=== PATIENT | male | born 1945 | race Caucasian/White ===

== ENCOUNTER 2016-06-29 14:34 | Inpatient (IN) ==
[2016-06-29] MEDS ORDERED: Aspirin 81 MG TAB.CHEW PO ONE (15:11)
[2016-06-29 15:39] LABS: Basophils % 0.3 %; Eosinophils % 1.3 %; Hematocrit 26.5 % (37.5-50.1); Hemoglobin 8.5 g/dL (12.9-16.9); Immature Granulocytes % 0.3 % (0-4); Lymphocytes # 0.7 K/mcL (0.6-4.6); Lymphocytes % 20.4 %; Mean Corpuscular HGB Conc 32.1 g/dL (31.6-35.5); Mean Corpuscular Hemoglobin 31.1 pg (28.0-33.3); Mean Corpuscular Volume 97.1 fL (83.0-100.0); Mean Platelet Volume 9.2 fL (9.4-12.4); Monocytes # 0.3 K/mcL (0.0-1.3); Monocytes % 9.7 %; Neutrophils # 2.2 K/mcL (1.6-8.9); Platelet Count 116 K/mcL (140-400); Red Blood Count 2.73 M/mcL (4.19-5.50); Red Cell Distribution Width 14.7 % (11.5-14.5)
[2016-06-29 15:45] LABS: INR 1.1; Prothrombin Time 11.9 Seconds (9.4-12.1)
[2016-06-29 15:48] LABS: Activated Partial Thrombo Time 29.2 Seconds (26.0-36.0)
[2016-06-29 15:51] LABS: Calcium 8.6 mg/dL (8.6-10.8); Potassium 4.5 mEq/L (3.5-4.5)
--- NOTE | 2016-06-29 16:57 | Emergency Department Note ---
Disposition Clinical Impression: NSTEMI (non-ST elevated myocardial infarction) Chest pain Qualifiers: Chest pain type: chest pain due to myocardial ischemia Ischemic chest pain type : unstable angina pectoris Qualified Code(s): I20.0 - Unstable angina Disposition: Admitted As Inpatient Condition: Fair Time of Disposition: 17:07 Chest Pain HPI - General Chief Complaint: ED Chest Pain Stated Complaint: chest pain Time Seen by Provider: 06/29/16 14:49 Source: EMS Limitations: no limitations Vital Signs Reviewed: Yes Nursing Notes Reviewed: Yes - History of Present Illness HPI Narrative: Patient is a 70-year-old male who expressed chest pain this morning approximately 0600 hrs. patient states the pain lasted 30 minutes but when asked to describe where the pain was and character patient was unable to give a good description. Patient does have a history of poor recollection and confusion per family they state patient today is that his baseline. Patient points to mid abdomen when asked about his chest pain. Patient is seen at the [facility]. Patient's initial troponin was negative per their records at 0.04 , patient's repeat troponin 4 hours later was 0.069, patient had EKG changes and was transferred to the ED. Patient arrived asymptomatic and not having any chest pain. Patient was administered aspirin on arrival. Patient is alert and oriented 3 and in no acute distress Severity scale (1-10): 0 - Related Data Home Medications Medication Instructions Recorded Confirmed Aspirin [Lo-Dose Aspirin EC] 81 mg PO DAILY 06/29/16 06/29/16 Chlorhexidine Gluconate [Periogard] 15 ml MM BID 06/29/16 06/29/16 Cholecalciferol (D-3) [Vitamin D] 4,000 unit PO DAILY 06/29/16 06/29/16 Clopidogrel [Plavix] 75 mg PO DAILY 06/29/16 06/29/16 CycloSPORINE (SandIMMUNE) 50 mg PO BID 06/29/16 06/29/16 [SandIMMUNE] Docusate [Colace] 100 mg PO BID 06/29/16 06/29/16 HYDROcodone/Acet 5/325 mg 5 - 325 mg PO DAILY PRN MDD 1 06/29/16 06/29/16 HydrALAZINE 37.5 mg PO Q8HR 06/29/16 06/29/16 Metoprolol [Lopressor] 25 mg PO BID 06/29/16 06/29/16 Mycophenolate Mofetil [Cellcept] 500 mg PO BID 06/29/16 06/29/16 [place]-3/Dha/Epa/Fish Oil [Fish Oil 2,000 mg PO BID 06/29/16 06/29/16 1,000 mg Softgel] Omeprazole [PriLOSEC] 20 mg PO DAILY 06/29/16 06/29/16 PredniSONE [Zhane] 5 mg PO DAILY 06/29/16 06/29/16 Quetiapine Fumarate [Seroquel] 200 mg PO HS 06/29/16 06/29/16 Sennosides [Senna] 8.6 mg PO BID PRN 06/29/16 06/29/16 Sertraline [Zoloft] 100 mg PO DAILY 06/29/16 06/29/16 Terazosin [Hytrin] 1 mg PO HS 06/29/16 06/29/16 Trazodone HCl 200 mg PO HS 06/29/16 06/29/16 Allergies Allergy/AdvReac Type Severity Reaction Status Date / Time gabapentin Allergy Swelling Verified 06/29/16 17:21 of Lip/Tongue/Throat pregabalin [From Lyrica] Allergy Swelling Verified 07/07/15 18:02 of Lip/Tongue/Throat Review of Systems: Patient denies chest pain, fever, chills, cough, dizziness, lightheadedness, shortness of breath, abdominal pain, incontinence, radiation of pain symptoms. All systems ED: reviewed and negative except as stated. Constitutional: Denies: fever, chills Eyes: Denies: vision change ENT ED: Denies: congestion Cardiovascular: Reports: chest pain. Denies: palpitations Respiratory: Denies: cough, dyspnea, wheezes Gastrointestinal: Denies: abdominal pain, nausea, vomiting, diarrhea, hematemesis, melena, hematochezia Genitourinary: Denies: urgency, dysuria Musculoskeletal: Denies: back pain, neck pain Integumentary: Denies: rash Neurological: Denies: headache Psychiatric: Denies: anxiety Endocrine: Denies: fatigue Chest Pain PMH - Past Medical History Medical history: Reports: CHF, COPD, diabetes, dialysis, myocardial infarction Psychiatric history: Reports: anxiety, depression - Social History Smoking Status: Never smoker Alcohol use: Reports: none Drug use: Reports: none Physical Exam - General Limitations: no limitations General appearance: alert - Head Head exam: atraumatic, normocephalic, normal inspection - Eye Eye exam: Present: normal appearance, PERRL, EOMI. Absent: scleral icterus, conjunctival injection - ENT ENT exam: normal exam, normal oropharynx, mucous membranes moist - Neck Neck exam: Present: normal inspection, full ROM, trachea midline. Absent: tenderness, meningismus, lymphadenopathy - Chest Chest inspection: Present: normal inspection, symmetric chest wall rise. Absent : tenderness, rash - Respiratory Respiratory exam: Present: normal lung sounds bilaterally. Absent: respiratory distress, wheezes - Cardiovascular Cardiovascular exam: Present: regular rate, normal rhythm - Abdominal Exam Abdominal exam: Present: soft, Non-Tender, normal bowel sounds. Absent: tenderness, distention, guarding, rebound, rigidity - Extremities Exam Extremities exam: Present: normal inspection, full ROM, normal capillary refill. Absent: tenderness, pedal edema - Back Exam Back exam: Present: normal inspection, full ROM. Absent: tenderness, CVA tenderness (R), CVA tenderness (L) - Neurological Exam Neurological exam: Present: alert, oriented X3, CN II-XII intact - Psychiatric Psychiatric exam: Present: normal affect, normal mood - Skin Skin exam: Present: warm, dry, intact, normal color. Absent: diaphoresis, pallor Course - Reevaluation(s) Reevaluation #1: Patient's history is concerning for ACS/DC, patient currently had no chest pain symptoms and has bilateral equal radial pulses so doubt aortic dissection, possibility for PE the patient is O2 sats are well patient has no pain no shortness of breath. Cardiac event more likely at this time. Patient has no focal deficits or weaknesses doubt CVA/TIA as well. Plan recheck patient's labs, chest x-ray, EKG troponin. Admit to medicine for a cardiac workup. Time: 14:50 Reevaluation #2: Patient is doing well, has no complaints. still has no chest pain Time: 15:15 Reevaluation #3: Patient's labs show worsening chronic anemia currently 8.5 down from 11.2. Patient shows a hyponatremia at 132. Patient does have an increase of his troponin of 0.10. Cardiology will be consult and to see if patient needs to be started on any other medications. Patient has a hard score of 8 Time: 16:10 Additional Reevaluation(s): Consulted cardiology and they recommend patient be started on any other medications as long as he is currently anticoagulated which he is currently on heparin. Also recommend admission to the hospital. Patient still doing well. Has no complaints. Patient is eating. Patient understands and accepts plan for admission - Consultations Consultation #1: Dr. Hall the hospitalist has accepted the patient for admission at 1655 hrs. Time: 16:55 Consultation #2: Dr. Matta of cardiology who states she was see patient tomorrow morning. States as long as patient is already anticoagulated then he does need to be heparinized. Checked patient's records shows the patient is being heparinized at the [facility], recommending continuation of heparin starting tomorrow. He also recommends with hospice no that if anything changes that he should let Dr. Matta know and he can see the patient sooner Time: 17:00 Vital Signs Temperature 98.6 F 06/29/16 14:36 Pulse Rate 77 06/29/16 14:36 Respiratory Rate 18 06/29/16 14:36 Blood Pressure 148/65 06/29/16 14:36 O2 Sat by Pulse Oximetry 99 06/29/16 14:36 Temperature 97.6 F 06/30/16 07:19 Pulse Rate 68 06/30/16 07:19 Respiratory Rate 18 06/30/16 07:19 Blood Pressure 118/60 06/30/16 07:19 O2 Sat by Pulse Oximetry 100 06/30/16 07:19 Oxygen Delivery Oxygen Delivery Nasal Cannula Chest Pain - Lab Data Result diagrams: 06/30/16 01:14 06/30/16 01:14 Lab Results 06/29/16 06/29/16 06/29/16 Range/Units 15:29 15:29 15:29 WBC 3.2 L (4.3-11.1) K/mcL RBC 2.73 L (4.19-5.50) M/mcL Hgb 8.5 L (12.9-16.9) g/dL Hct 26.5 L (37.5-50.1) % MCV 97.1 (83.0-100.0) fL MCH 31.1 (28.0-33.3) pg MCHC 32.1 (31.6-35.5) g/dL RDW 14.7 H (11.5-14.5) % Plt Count 116 L (140-400) K/mcL MPV 9.2 L (9.4-12.4) fL Immature Gran % 0.3 (0-4) % Seg Neutrophils % 68.0 % Lymphocytes % 20.4 % Monocytes % 9.7 % Eosinophils % 1.3 % Basophils % 0.3 % Neutrophils # 2.2 (1.6-8.9) K/mcL Lymphocytes # 0.7 (0.6-4.6) K/mcL Monocytes # 0.3 (0.0-1.3) K/mcL Eosinophils # 0.0 (0.0-0.6) K/mcL Basophils # 0.0 (0.0-0.2) K/mcL PT 11.9 (9.4-12.1) Seconds INR 1.1 APTT 29.2 (26.0-36.0) Seconds Sodium 135 L (136-145) mEq/L Potassium 4.5 (3.5-4.5) mEq/L Chloride 106 (98-109) mEq/L Carbon Dioxide 20 (19-29) mEq/L BUN 38 H (8-26) mg/dL Creatinine 1.82 H (0.72-1.25) mg/dL Est GFR ( Amer) 45 L (> 60) Est GFR (Non-Af Amer) 37 L (> 60) BUN/Creatinine Ratio 21 (6-26) Glucose 104 H (70-99) mg/dL Calculated Osmolality 289 (280-300) Calcium 8.6 (8.6-10.8) mg/dL Troponin I (0-0.03) ng/mL 06/29/16 Range/Units 15:29 WBC (4.3-11.1) K/mcL RBC (4.19-5.50) M/mcL Hgb (12.9-16.9) g/dL Hct (37.5-50.1) % MCV (83.0-100.0) fL MCH (28.0-33.3) pg MCHC (31.6-35.5) g/dL RDW (11.5-14.5) % Plt Count (140-400) K/mcL MPV (9.4-12.4) fL Immature Gran % (0-4) % Seg Neutrophils % % Lymphocytes % % Monocytes % % Eosinophils % % Basophils % % Neutrophils # (1.6-8.9) K/mcL Lymphocytes # (0.6-4.6) K/mcL Monocytes # (0.0-1.3) K/mcL Eosinophils # (0.0-0.6) K/mcL Basophils # (0.0-0.2) K/mcL PT (9.4-12.1) Seconds INR APTT (26.0-36.0) Seconds Sodium (136-145) mEq/L Potassium (3.5-4.5) mEq/L Chloride (98-109) mEq/L Carbon Dioxide (19-29) mEq/L BUN (8-26) mg/dL Creatinine (0.72-1.25) mg/dL Est GFR ( Amer) (> 60) Est GFR (Non-Af Amer) (> 60) BUN/Creatinine Ratio (6-26) Glucose (70-99) mg/dL Calculated Osmolality (280-300) Calcium (8.6-10.8) mg/dL Troponin I 0.10 H* (0-0.03) ng/mL Heart Score - Score History: Highly Suspicious EKG: Non Specific repolarisation Disturbance Age: Greater than 65 Risk Factors: Equal/Greater than 3 risk factor or history of atherosclerotic disease Troponin: 1-3x normal limit HEART Score Total: 8 Attestation Statement - Attestation Attestation: I examined this patient and my medical decision-making was reviewed with the SPORTS PHYSIOTHERAPIST/PA/Advanced Practice Nurse/Resident Physician. I agree with the documented findings, disposition and treatment plan as described except to the extent set forth below.
--- NOTE | 2016-06-29 17:31 | Internal Med History&Physical ---
Date of Encounter: 06/29/16 Time of Encounter: 17:25 Assessment and Plan (1) Hx of CABG Current visit: Yes Status: Acute cabg 2014 now with typical chest pain (2) HTN (hypertension) Current visit: Yes Status: Chronic not well controlled contribution to ischemia add b mateusz and norvasc Qualifiers: Hypertension type: essential hypertension Qualified Code(s): I10 - Essential (primary) hypertension (3) CKD (chronic kidney disease) Current visit: Yes Status: Chronic history of renal transplant with renal failure nephrology consulted Qualifiers: Chronic kidney disease stage: stage 3 (moderate) Qualified Code(s): N18.3 - Chronic kidney disease, stage 3 (moderate) (4) Anemia Current visit: Yes Status: Chronic with normal mcv likely of chronic disease re check in am Qualifiers: Anemia type: unspecified type Qualified Code(s): D64.9 - Anemia, unspecified (5) History of DVT of lower extremity Current visit: Yes Status: Acute was on xarelto now switched to heparin (6) Pneumonia Current visit: Yes Status: Acute reason for [facility] dont have much detail chest x ray here is abnormal will place on zosyn consider ct without contrast to comfirm Qualifiers: Pneumonia type: due to unspecified organism Laterality: left Lung location: lower lobe of lung Qualified Code(s): J18.1 - Lobar pneumonia, unspecified organism (7) Hyperlipidemia Current visit: Yes Status: Chronic check in am Qualifiers: Hyperlipidemia type: mixed hyperlipidemia Qualified Code(s): E78.2 - Mixed hyperlipidemia (8) NSTEMI (non-ST elevated myocardial infarction) Current visit: Yes Status: Acute cabg 2014 with chest pain of cardiac and troponin now 0.1 he is chest pain free ekg showed inferior lat dynamic ischemia will continue on heparin start on b mateusz and plavix cardiology consulted he is chest pain free and stable Internal Medicine - H&P: HPI Chief complaint: chest pain Admitted From: Hospital to Hospital Transfer Plans for Post Hospital Care: Home History of present illness: Mr. De La Paz is a 70 year old male Patient transfer from [facility] due to chest pain and abnormal EKG. He has history of CABG August 2014 but dont have the detail of the bypass patient also has history of hypertension, renal transplant with renal failure, PTSD, high cholesterol, pressure ulcer of the coccyx, lumbar radiculopathy, history of DVT and was on xarelto apprently changed to heparin at [facility] patient was admitted to the [facility] on Friday which is June 24 with dehydration and pneumonia and was being treated at the hospital . This morning patient developed severe chest pain described as tightness and pressure he said he doubled over with the chest pain al EKG was abnormal troponin was 0.o8 and then transferred to here for further evaluation. He Is now completely chest pain-free EKG showed improvement showed diffuse nonspecific ST-T wave changes with inferolateral ischemia of ST depression which is improved troponin here 0.1. His creatinine from [facility] is 1.83 chest x- ray are suggestive of left lower lobe atelectasis versus infiltrate.. denies fever or chills hgb 8.5 Past Med Surg Social Fam HX - Past Medical History Medical history: CHF, COPD, diabetes, dialysis, myocardial infarction, renal disease Psychiatric history: anxiety, depression - Past Surgical History Surgical History: coronary bypass (CABG) - Social History Smoking Status: Never smoker Smokeless Tobacco Status: No Alcohol use: none Drug use: none Internal Medicine - H&P: Meds Aspirin [Lo-Dose Aspirin EC] 81 mg PO DAILY 06/29/16 [History] Chlorhexidine Gluconate [Periogard] 15 ml MM BID 06/29/16 [History] Cholecalciferol (D-3) [Vitamin D] 4,000 unit PO DAILY 06/29/16 [History] Clopidogrel [Plavix] 75 mg PO DAILY 06/29/16 [History] CycloSPORINE (SandIMMUNE) [SandIMMUNE] 50 mg PO BID 06/29/16 [History] Docusate [Colace] 100 mg PO BID 06/29/16 [History] Heparin 5,000 unit SQ Q12HR 06/29/16 [History] HydrALAZINE 37.5 mg PO Q8HR 06/29/16 [History] Megestrol Acetate 200 mg PO BID 06/29/16 [History] Metoprolol [Lopressor] 25 mg PO BID 06/29/16 [History] Mycophenolate Mofetil [Cellcept] 500 mg PO BID 06/29/16 [History] [place]-3/Dha/Epa/Fish Oil [Fish Oil 1,000 mg Softgel] 2,000 mg PO BID 06/29/16 [ History] Omeprazole [PriLOSEC] 20 mg PO DAILY 06/29/16 [History] PredniSONE [Zhane] 5 mg PO DAILY 06/29/16 [History] Quetiapine Fumarate [Seroquel] 200 mg PO HS 06/29/16 [History] Sennosides [Senna] 8.6 mg PO BID PRN 06/29/16 [History] Sertraline [Zoloft] 100 mg PO DAILY 06/29/16 [History] Terazosin [Hytrin] 1 mg PO HS 06/29/16 [History] Trazodone HCl 200 mg PO HS 06/29/16 [History] Allergies gabapentin Allergy (Verified 06/29/16 17:21) Swelling of Lip/Tongue/Throat pregabalin [From Lyrica] Allergy (Verified 07/07/15 18:02) Swelling of Lip/Tongue/Throat All Systems PM: A 10-system review of systems was performed and is negative for pertinent findings except as documented above in the HPI. - Constitutional Constitutional: fatigue, lethargy - EENT Eyes: no change in vision, no discharge, no pain, no photophobia Ears: no ear discharge, no ear pain, no tinnitus Nose, mouth and throat: no dysphagia, no nasal discharge, no neck pain, no sore throat - Cardiovascular Cardiovascular ROS IM: chest pain, dyspnea on exertion - Respiratory Respiratory: no cough, no dyspnea, no wheezing, no excessive phlegm production - Gastrointestinal Gastrointestinal: no abdominal pain, no diarrhea, no hematemesis, no hematochezia, no melena, no nausea, no vomiting - Musculoskeletal Musculoskeletal ROS IM: no numbness, no tingling - Integumentary Integumentary IM: no rash, no unusual bruising - Neurological Neurological ROS: no confusion, no convulsions, no focal weakness, no numbness, no tingling, no tremor(s) - Hematologic/Lymphatic Hematologic/Lymphatic: no easy bruising - Constitutional Vitals: Temp Pulse Resp BP Pulse Ox 98.6 F 75 18 147/65 98 06/29/16 14:36 06/29/16 16:20 06/29/16 16:20 06/29/16 16:20 06/29/16 16:20 Internal Med - H&P Results - Labs CBC & Chem 7: 06/29/16 15:29 06/29/16 15:29
[2016-06-29] MEDS ORDERED: *HR* HYDROmorphone (PF) 1 MG/ML SYRINGE IVP PRN (17:44)
[2016-06-29] MEDS ORDERED: Ondansetron 4 MG/2 ML VIAL IVP PRN (17:44)
[2016-06-29] MEDS ORDERED: MOM Conc 10 ML UD.LIQ PO PRN (17:44)
[2016-06-29] MEDS ORDERED: Naloxone 0.4 MG/ML INJ IVP PRN (17:44)
[2016-06-29] MEDS ORDERED: Sennosides 8.6 MG TABLET PO PRN (17:47)
[2016-06-29] MEDS ORDERED: *HR* Heparin 5,000 UNIT/ML VIAL IVP PRN ×2 (17:55)
[2016-06-29] MEDS ORDERED: *HR* Heparin 5,000 UNIT/ML VIAL IVP ONE (17:55)
[2016-06-29] MEDS ORDERED: Heparin 25,000 UNIT/500 ML D5W 25,000 UNIT/500 ML MLS IVC SCH (18:00)
[2016-06-29 18:19] LABS: Hematocrit 27.2 % (37.5-50.1); Hemoglobin 8.5 g/dL (12.9-16.9); Mean Corpuscular HGB Conc 31.3 g/dL (31.6-35.5); Mean Corpuscular Hemoglobin 30.4 pg (28.0-33.3); Mean Corpuscular Volume 97.1 fL (83.0-100.0); Mean Platelet Volume 9.1 fL (9.4-12.4); Platelet Count 115 K/mcL (140-400); Red Cell Distribution Width 14.4 % (11.5-14.5)
[2016-06-29 18:24] LABS: INR 1.1; Prothrombin Time 11.7 Seconds (9.4-12.1)
[2016-06-29 18:26] LABS: Activated Partial Thrombo Time 28.5 Seconds (26.0-36.0)
[2016-06-29] MEDS: 0.9 % Sodium Chloride 1,000 ML IVC SCH (19:01)
[2016-06-29] MEDS ORDERED: *HR* Metoprolol 5 MG/5 ML VIAL IVP STA (21:12)
[2016-06-29] MEDS ORDERED: *HR* LORazepam 2 MG/ML VIAL IVP STA (21:21)
[2016-06-29] MEDS ORDERED: Acetaminophen 325 MG TABLET PO PRN (21:25)
[2016-06-29] MEDS ORDERED: Ipratropium/Albuterol Neb 3 ML IH PRN (21:27)
[2016-06-29] MEDS: traZODone 50 MG TABLET PO SCH (22:02)
--- NOTE | 2016-06-29 22:02 | Emergency Department Note ---
Disposition Clinical Impression: NSTEMI (non-ST elevated myocardial infarction) Chest pain Qualifiers: Chest pain type: chest pain due to myocardial ischemia Ischemic chest pain type : unstable angina pectoris Qualified Code(s): I20.0 - Unstable angina Disposition: Admitted As Inpatient Condition: Fair Chest Pain HPI - General Chief Complaint: ED Chest Pain Stated Complaint: chest pain Time Seen by Provider: 06/29/16 14:49 Source: EMS Limitations: no limitations - History of Present Illness HPI Narrative: 70-year-old male presents ED because of intermittent chest pain. Earlier today she had about 30 minutes for the chest pain he describes as substernal pressure with radiation to his arms. Complains of dyspnea. He initially went to the [facility] at which time he found his troponin is elevated. He was pain- free at that time. He was transferred here for further evaluation. Patient denies any chest pain. Pt complaint: chest pain Duration: intermittent, now resolved Onset: during rest Pain Location: left chest Severity: moderate Severity scale (1-10): 0 Quality: heaviness Pain Radiation: LUE Improves with: nothing Worsens with: nothing - Related Data Home Medications Medication Instructions Recorded Confirmed Aspirin [Lo-Dose Aspirin EC] 81 mg PO DAILY 06/29/16 06/29/16 Chlorhexidine Gluconate [Periogard] 15 ml MM BID 06/29/16 06/29/16 Cholecalciferol (D-3) [Vitamin D] 4,000 unit PO DAILY 06/29/16 06/29/16 Clopidogrel [Plavix] 75 mg PO DAILY 06/29/16 06/29/16 CycloSPORINE (SandIMMUNE) 50 mg PO BID 06/29/16 06/29/16 [SandIMMUNE] Docusate [Colace] 100 mg PO BID 06/29/16 06/29/16 HYDROcodone/Acet 5/325 mg 5 - 325 mg PO DAILY PRN MDD 1 06/29/16 06/29/16 HydrALAZINE 37.5 mg PO Q8HR 06/29/16 06/29/16 Metoprolol [Lopressor] 25 mg PO BID 06/29/16 06/29/16 Mycophenolate Mofetil [Cellcept] 500 mg PO BID 06/29/16 06/29/16 [place]-3/Dha/Epa/Fish Oil [Fish Oil 2,000 mg PO BID 06/29/16 06/29/16 1,000 mg Softgel] Omeprazole [PriLOSEC] 20 mg PO DAILY 06/29/16 06/29/16 PredniSONE [Zhane] 5 mg PO DAILY 06/29/16 06/29/16 Quetiapine Fumarate [Seroquel] 200 mg PO HS 06/29/16 06/29/16 Sennosides [Senna] 8.6 mg PO BID PRN 06/29/16 06/29/16 Sertraline [Zoloft] 100 mg PO DAILY 06/29/16 06/29/16 Terazosin [Hytrin] 1 mg PO HS 06/29/16 06/29/16 Trazodone HCl 200 mg PO HS 06/29/16 06/29/16 Allergies Allergy/AdvReac Type Severity Reaction Status Date / Time gabapentin Allergy Swelling Verified 06/29/16 17:21 of Lip/Tongue/Throat pregabalin [From Lyrica] Allergy Swelling Verified 07/07/15 18:02 of Lip/Tongue/Throat All systems ED: reviewed and negative except as stated. Constitutional: Denies: fever, chills, weakness Eyes: Denies: eye pain ENT ED: Denies: ear pain Cardiovascular: Reports: chest pain. Denies: palpitations Respiratory: Reports: dyspnea Chest Pain PMH - Past Medical History Medical history: Reports: CHF, COPD, diabetes, dialysis, myocardial infarction Surgical history: Reports: coronary bypass (CABG), transplant Psychiatric history: Reports: anxiety, depression - Social History Smoking Status: Never smoker Alcohol use: Reports: none Drug use: Reports: none Physical Exam - General Limitations: no limitations General appearance: alert - Head Head exam: atraumatic, normocephalic - Eye Eye exam: Present: normal appearance - Neck Neck exam: Present: full ROM - Chest Chest inspection: Present: normal inspection, symmetric chest wall rise - Respiratory Respiratory exam: Present: normal lung sounds bilaterally - Cardiovascular Cardiovascular exam: Present: regular rate, normal rhythm - Abdominal Exam Abdominal exam: Present: Non-Tender Course - Reevaluation(s) Reevaluation #1: Patient had no further chest pain throughout his time in the ED. Repeat troponin was elevated for her. EKG was unremarkable. He is admitted for further evaluation. The high probability of a clinically significant, sudden or life threatening deterioration of the [cardiovascular] system(s) required my full and direct attention, intervention and personal management. The aggregate critical care time was [30] minutes. This time is in addition to time spent performing reported procedures but includes the following: [x] Data Review and interpretation [x] Patient assessment and monitoring of vital signs [x] Documentation [x] Medication orders and management Vital Signs Temperature 98.6 F 06/29/16 14:36 Pulse Rate 77 06/29/16 14:36 Respiratory Rate 18 06/29/16 14:36 Blood Pressure 148/65 06/29/16 14:36 O2 Sat by Pulse Oximetry 99 06/29/16 14:36 Temperature 97.9 F 06/29/16 21:15 Pulse Rate 129 06/29/16 21:15 Respiratory Rate 20 06/29/16 21:15 Blood Pressure 155/90 06/29/16 21:15 O2 Sat by Pulse Oximetry 92 06/29/16 19:32 Oxygen Delivery Oxygen Delivery Nasal Cannula Chest Pain - Lab Data Result diagrams: 06/29/16 18:07 06/29/16 15:29 Lab Results 06/29/16 06/29/16 06/29/16 Range/Units 15:29 15:29 15:29 WBC 3.2 L (4.3-11.1) K/mcL RBC 2.73 L (4.19-5.50) M/mcL Hgb 8.5 L (12.9-16.9) g/dL Hct 26.5 L (37.5-50.1) % MCV 97.1 (83.0-100.0) fL MCH 31.1 (28.0-33.3) pg MCHC 32.1 (31.6-35.5) g/dL RDW 14.7 H (11.5-14.5) % Plt Count 116 L (140-400) K/mcL MPV 9.2 L (9.4-12.4) fL Immature Gran % 0.3 (0-4) % Seg Neutrophils % 68.0 % Lymphocytes % 20.4 % Monocytes % 9.7 % Eosinophils % 1.3 % Basophils % 0.3 % Neutrophils # 2.2 (1.6-8.9) K/mcL Lymphocytes # 0.7 (0.6-4.6) K/mcL Monocytes # 0.3 (0.0-1.3) K/mcL Eosinophils # 0.0 (0.0-0.6) K/mcL Basophils # 0.0 (0.0-0.2) K/mcL PT 11.9 (9.4-12.1) Seconds INR 1.1 APTT 29.2 (26.0-36.0) Seconds Sodium 135 L (136-145) mEq/L Potassium 4.5 (3.5-4.5) mEq/L Chloride 106 (98-109) mEq/L Carbon Dioxide 20 (19-29) mEq/L BUN 38 H (8-26) mg/dL Creatinine 1.82 H (0.72-1.25) mg/dL Est GFR ( Amer) 45 L (> 60) Est GFR (Non-Af Amer) 37 L (> 60) BUN/Creatinine Ratio 21 (6-26) Glucose 104 H (70-99) mg/dL Calculated Osmolality 289 (280-300) Calcium 8.6 (8.6-10.8) mg/dL Troponin I (0-0.03) ng/mL 06/29/16 Range/Units 15:29 WBC (4.3-11.1) K/mcL RBC (4.19-5.50) M/mcL Hgb (12.9-16.9) g/dL Hct (37.5-50.1) % MCV (83.0-100.0) fL MCH (28.0-33.3) pg MCHC (31.6-35.5) g/dL RDW (11.5-14.5) % Plt Count (140-400) K/mcL MPV (9.4-12.4) fL Immature Gran % (0-4) % Seg Neutrophils % % Lymphocytes % % Monocytes % % Eosinophils % % Basophils % % Neutrophils # (1.6-8.9) K/mcL Lymphocytes # (0.6-4.6) K/mcL Monocytes # (0.0-1.3) K/mcL Eosinophils # (0.0-0.6) K/mcL Basophils # (0.0-0.2) K/mcL PT (9.4-12.1) Seconds INR APTT (26.0-36.0) Seconds Sodium (136-145) mEq/L Potassium (3.5-4.5) mEq/L Chloride (98-109) mEq/L Carbon Dioxide (19-29) mEq/L BUN (8-26) mg/dL Creatinine (0.72-1.25) mg/dL Est GFR ( Amer) (> 60) Est GFR (Non-Af Amer) (> 60) BUN/Creatinine Ratio (6-26) Glucose (70-99) mg/dL Calculated Osmolality (280-300) Calcium (8.6-10.8) mg/dL Troponin I 0.10 H* (0-0.03) ng/mL
[2016-06-29] MEDS: Chlorhexidine Rinse 15 ML MOUTHWASH MM SCH (22:03)
[2016-06-29] MEDS: (Omega-3/Dha/Epa/Fish Oil [Fish Oil 1,000 Mg Softgel] PO SCH (22:14)
[2016-06-29] MEDS ORDERED: *HR* LORazepam 2 MG/ML VIAL IVP PRN (23:00)
[2016-06-29] MEDS ORDERED: *HR* Metoprolol 5 MG/5 ML VIAL IVP PRN (23:00)
[2016-06-29] MEDS: Nitroglycerin 25 MG/250 ML INFUS..BTL IVC SCH (23:05)
[2016-06-30] MEDS: hydrALAZINE 25 MG TABLET PO SCH ×4 (01:18→23:48)
[2016-06-30] MEDS: Piperacillin/Tazobactam 3.375 GM in D5% in Water (Mini-Bag+) 100 ML IVPB SCH ×4 (01:18→23:49)
[2016-06-30 01:29] LABS: Basophils % 0.3 %; Eosinophils % 1.4 %; Hematocrit 22.7 % (37.5-50.1); Hemoglobin 7.4 g/dL (12.9-16.9); Immature Granulocytes % 0.7 % (0-4); Lymphocytes # 0.9 K/mcL (0.6-4.6); Lymphocytes % 29.7 %; Mean Corpuscular HGB Conc 32.6 g/dL (31.6-35.5); Mean Corpuscular Hemoglobin 31.4 pg (28.0-33.3); Mean Corpuscular Volume 96.2 fL (83.0-100.0); Monocytes # 0.4 K/mcL (0.0-1.3); Monocytes % 14.3 %; Neutrophils # 1.5 K/mcL (1.6-8.9); Platelet Count 100 K/mcL (140-400); Red Blood Count 2.36 M/mcL (4.19-5.50); Red Cell Distribution Width 14.3 % (11.5-14.5); Segmented Neutrophils % 53.6 %
[2016-06-30 01:46] LABS: Alanine Aminotransferase < 6 Units/L (0-55); Albumin 2.4 g/dL (3.5-5.0); Albumin/Globulin Ratio 1.3 (1.1-2.2); Alkaline Phosphatase 50 Units/L (38-126); Aspartate Amino Transferase 14 Units/L (5-34); BUN/Creatinine Ratio 22 (6-26); Bilirubin,Total 0.5 mg/dL (0.2-1.2); Blood Urea Nitrogen 32 mg/dL (8-26); Carbon Dioxide 16 mEq/L (19-29); Chloride 111 mEq/L (98-109); Chol/HDL Ratio 5.5 (0-4.9); Cholesterol 144 mg/dL (< 200); Globulin 1.9 g/dL (2.4-3.5); Glucose 112 mg/dL (70-99); HDL Cholesterol 26 mg/dL (40-59); LDL Cholesterol,Calculated 100 mg/dL (0-99); Magnesium 1.1 mg/dL (1.6-2.6); Osmolality,Calculated 284 (280-300); Potassium 3.1 mEq/L (3.5-4.5); Sodium 133 mEq/L (136-145); Total Protein 4.3 g/dL (6.0-8.3); Triglycerides 90 mg/dL (< 150); eGFR For African Americans 57 (> 60); eGFR For Non-African Americans 47 (> 60)
--- NOTE | 2016-06-30 03:18 | Event Note ---
<Vinny Alvarado - Last Filed: 06/30/16 06:44> Date of Encounter: 06/30/16 Time of Encounter: 02:30 I was paged by nurse for elevation of troponin from 0.11 to 0.64. Patient reports no chest pain. EKG was obtained and showed more prominent Q waves in lead III suggesting progression from earlier MN and possible A-flutter with rate of 117. Will start patient on cardizem drip to control tachycardia. Will continue to trend troponin. Cardiology has been consulted by admitting physician and will appreciate their evaluation for potential need of cardiac cath. <Masoud Owensis - Last Filed: 07/03/16 07:10> Date of Encounter: 06/30/16 My signature below is to certify that this patient is under my care and that I, or the Resident Physician, Dr. Vinny Alvarado, working with me, has had a face-to- face encounter with this patient. For this encounter, I have reviewed the documentation, treatment plan, and medical decision making. My medical decision-making was reviewed with the Resident Physician. I agree with the documented findings, disposition and treatment plan as described.
[2016-06-30] MEDS: 0.9 % Sodium Chloride 1,000 ML IVC SCH (08:38)
[2016-06-30] MEDS: predniSONE 5 MG TABLET PO SCH (08:41)
[2016-06-30] MEDS: Chlorhexidine Rinse 15 ML MOUTHWASH MM SCH ×2 (08:41→21:24)
[2016-06-30] MEDS: Aspirin Enteric Coated 81 MG Tablet PO SCH (08:41)
[2016-06-30] MEDS: Cholecalciferol (D-3) 1,000 UNIT TABLET PO SCH (08:41)
[2016-06-30] MEDS: (Omega-3/Dha/Epa/Fish Oil [Fish Oil 1,000 Mg Softgel] PO SCH ×2 (08:42→21:25)
--- NOTE | 2016-06-30 09:55 | Cardiology Consult Note ---
Date of Encounter: 06/30/16 Time of Encounter: 09:55 Assessment and Plan (1) NSTEMI (non-ST elevated myocardial infarction) Current Visit: Yes Status: Acute Troponins 0.10, 0.11, 0.69, 3.22. Chest pain/pressure that radiated down left arm. No recurrence since last night. HGB 7.4. Was 8.5 on admission, 11.5 07/2015. Will stop heparin gtt. Wean off nitro gtt. EKGs reviewed overnight--appears sinus tach, not A-Flutter. Reviewed with Dr. Matta. Per , pt had 3V CABG at [facility] in 2013 and has a known EF of 35%. She states there was a fourth vessel that needed bypass that they were unable to do. Check echo to evaluate structure and function. I discussed how aggressive they would like to be from a cardiac standpoint. I discussed LHC vs. medical management with R/B/A of both options. states she would like to proceed with medical management. She states pt has not been eating over recent months and is significantly weak, fatigued. Recommend palliative care consult. Pt is on ASA, Plavix,BB. No statin due to interaction with immunosuppressants. Will add Imdur. Can stop plavix if needed for anemia. (2) Acute on chronic systolic (congestive) heart failure Current Visit: Yes Status: Acute Acute on chronic. Per , known EF of 35%. Switch BB to Toprol XL. Current echo pending. Recommend JEFF-I if renal function will allow. BNP 1867. CXR and CT show left pleural effusion. Recommend gentle diuresis. Will order Lasix IV 40mg daily. Monitor renal function closely. K 3.1--will replace. Recommend strict I/Os, daily weights, Na and fluid restriction. (3) CAD (coronary artery disease) Current Visit: Yes Status: Acute Hx of 3V CABG in 2013 at [facility]. ASA, Statin, BB. Qualifiers: Coronary Disease-Associated Artery/Lesion type: unspecified vessel or lesion type [place] vs. transplanted heart: [place] heart Associated angina: angina presence unspecified Qualified Code(s): I25.10 - Atherosclerotic heart disease of [place] coronary artery without angina pectoris (4) Cardiomyopathy Current Visit: Yes Status: Chronic Presumed ischemic with hx of 3V CABG. Per , EF known to be 35%. Switch BB to Toprol XL. Recommend JEFF-I if renal function will tolerate. Qualifiers: Cardiomyopathy type: ischemic Qualified Code(s): I25.5 - Ischemic cardiomyopathy (5) CKD (chronic kidney disease) Current Visit: Yes Status: Chronic Hx of renal transplant with subsequent renal failure. Primary team consulted nephrology. Qualifiers: Chronic kidney disease stage: stage 3 (moderate) Qualified Code(s): N18.3 - Chronic kidney disease, stage 3 (moderate) (6) Sinus tachycardia Current Visit: Yes Status: Acute There was concern that pt went into A-Flutter RVR overnight. EKGs reviewed with Dr. Matta, appears to be sinus tach. Currently SR, rate 60s. (7) Anemia Current Visit: Yes Status: Chronic HGB was 11.5 07/2015, 8.5 on admission, 7.4 today. Will stop heparin gtt. Pt's reports last GI workup was 4 years ago. Recommend primary team consider GI evaluation. Qualifiers: Anemia type: unspecified type Qualified Code(s): D64.9 - Anemia, unspecified Discussion w patient/family: The assessment and plan as outlined above was discussed with the patient and/or family members who expressed understanding and agreement. All questions were answered. Thank you for involving us in the care of your patient. Please call with any questions. I will discuss all the above with Dr. Matta and make changes as necessary. History of Present Illness Consult date: 06/30/16 Requesting physician: Evans Gamez Consult reason: NSTEMI Chief complaint: Chest pain History of present illness: Mr. De La Paz is a 70 year old male with PMH of HTN, CAD s/p 3V CABG in 2013 at [facility] , CHF with reported EF 35% per , renal transplant with renal failure, PTSD, HLD, lumbar radiculopathy, history of chronic DVT in the iliac and common femoral vein, previously on xarelto. Pt was admitted to the [facility] on FridayJune 24 with dehydration and pneumonia. reports pt has had dyspnea over the past 3 months. Yesterday morning patient developed severe chest pain described as tightness and pressure, troponin 0.08 and he was transferred here for further evaluation. He reports another episode of chest pain last night, but none since. states he told her the pain radiated down his left arm. Troponins 0.10, 0.11, 0.69, 3.22. BNP 1867, HGB 7.4, was 8.5 on admission. HGB was 11.5 07/2015. Denies evidence of bleeding. also reports over the past 3 months he has stopped eating and been very weak. Was tachycardic overnight-- reviewed with Dr. Matta, appears to be sinus tach. Past Med Surg Social Fam HX - Past Medical History Medical history: CHF, COPD, diabetes, dialysis, myocardial infarction Psychiatric history: anxiety, depression - Past Surgical History Surgical History: coronary bypass (CABG), transplant - Social History Smoking Status: Never smoker Smokeless Tobacco Status: No Alcohol use: none Drug use: none - Family History Mother Living Status: Cause of : heart disease Hx Family Cardiac Disorders: Yes Hx Family Cancer: Yes (colon) Father Living Status: Cause of : bladder cancer Hx Family Cardiac Disorders: Yes Hx Family Cancer: Yes Medications and Allergies Aspirin [Lo-Dose Aspirin EC] 81 mg PO DAILY 06/29/16 [History] Chlorhexidine Gluconate [Periogard] 15 ml MM BID 06/29/16 [History] Cholecalciferol (D-3) [Vitamin D] 4,000 unit PO DAILY 06/29/16 [History] Clopidogrel [Plavix] 75 mg PO DAILY 06/29/16 [History] CycloSPORINE (SandIMMUNE) [SandIMMUNE] 50 mg PO BID 06/29/16 [History] Docusate [Colace] 100 mg PO BID 06/29/16 [History] HYDROcodone/Acet 5/325 mg 5 - 325 mg PO DAILY PRN MDD 1 06/29/16 [History] HydrALAZINE 37.5 mg PO Q8HR 06/29/16 [History] Metoprolol [Lopressor] 25 mg PO BID 06/29/16 [History] Mycophenolate Mofetil [Cellcept] 500 mg PO BID 06/29/16 [History] [place]-3/Dha/Epa/Fish Oil [Fish Oil 1,000 mg Softgel] 2,000 mg PO BID 06/29/16 [ History] Omeprazole [PriLOSEC] 20 mg PO DAILY 06/29/16 [History] PredniSONE [Zhane] 5 mg PO DAILY 06/29/16 [History] Quetiapine Fumarate [Seroquel] 200 mg PO HS 06/29/16 [History] Sennosides [Senna] 8.6 mg PO BID PRN 06/29/16 [History] Sertraline [Zoloft] 100 mg PO DAILY 06/29/16 [History] Terazosin [Hytrin] 1 mg PO HS 06/29/16 [History] Trazodone HCl 200 mg PO HS 06/29/16 [History] Allergies gabapentin Allergy (Verified 06/29/16 17:21) Swelling of Lip/Tongue/Throat pregabalin [From Lyrica] Allergy (Verified 07/07/15 18:02) Swelling of Lip/Tongue/Throat All Systems Review: A 10-system review of systems was performed and is negative for pertinent findings except as documented above in the HPI. - Cardiovascular Cardiovascular: as per HPI, chest pain at rest, dyspnea at rest, dyspnea on exertion Physical Examination Vital Signs, Last 4 Hours Temp Pulse Resp BP Pulse Ox 06/30/16 07:19 97.6 F 68 18 118/60 100 Vital Signs Temp Pulse Resp BP Pulse Ox 06/30/16 07:19 97.6 F 68 18 118/60 100 06/30/16 04:11 98.1 F 114 18 145/74 98 06/30/16 03:00 136/89 06/29/16 22:52 98.4 F 86 18 169/78 100 06/29/16 21:15 97.9 F 129 20 155/90 06/29/16 19:32 98.3 F 79 19 174/64 92 06/29/16 17:49 98.3 F 79 14 182/68 99 06/29/16 17:28 18 158/93 06/29/16 16:20 75 18 147/65 98 06/29/16 15:09 75 18 147/64 100 06/29/16 14:36 98.6 F 77 18 148/65 99 Intake and Output 06/29/16 06/30/16 06/30/16 23:59 07:59 15:59 Intake Total 0 / 0 231 / 231 1088 / 1088 Output Total 400 / 400 Balance 0 / 0 -169 / -169 1088 / 1088 Intake: IV Fluids 231 / 231 1088 / 1088 0.9 % Sodium Chloride 1, 1000 / 1000 000 ML @ 75 mls/hr IVC . [id number] [facility]O Rx#: [id number] Cardizem 125 MG In 25 / 25 Dextrose 5% 100 ML @ 5 MG /HR 5 mls/hr IVC .Q24H [facility] Rx#:[id number] Heparin 25,000 UNIT/500 106 / 106 88 / 88 ML D5W 25,000 unit In 500 ml @ 12 UNIT/KG/HR 16. 003 mls/hr IVC .Q24H [facility] Rx#:[id number] Zosyn 3.375 GM In 100 / 100 Dextrose 5% (Minibag+) 100 ML 100 ML @ 25 mls/hr IVPB Q8HR [facility] Rx#: [id number] Oral 0 / 0 0 / 0 Output: Urine 400 / 400 Other: # Voids 0 0 # Urine Diapers 1 Weight 71.8 kg Blood Glucose* 139 102 General: Conversant HEENT: Atraumatic, Normocephaly, Mucus Membranes Moist Neck: Normal carotid pulses Cardiac: Reg Rate and Rhythm, Normal S1 and S2, No Murmur Lungs: Other (diminished) Neuro: Alert and responsive, No focal deficits noted Abdomen: Soft, Non-Tender Skin: No rashes noted on visualized skin Musculoskeletal: No Chest Wall Tenderness Extremities: No Clubbing, No Cyanosis, No Edema, Normal Pulses Results 06/30/16 01:14 06/30/16 01:14 Lab Results 06/29/16 06/29/16 06/29/16 18:07 18:07 18:07 WBC 3.4 L Hgb 8.5 L Hct 27.2 L Plt Count 115 L INR 1.1 APTT 28.5 Sodium Potassium Chloride Carbon Dioxide BUN Creatinine Glucose Calcium Magnesium Total Bilirubin AST ALT Alkaline Phosphatase Troponin I 0.11 H* B-Natriuretic Peptide 06/30/16 06/30/16 06/30/16 01:14 01:14 01:14 WBC 2.9 L Hgb 7.4 L Hct 22.7 L Plt Count 100 L INR APTT 105.8 H D Sodium Potassium Chloride Carbon Dioxide BUN Creatinine Glucose Calcium Magnesium Total Bilirubin AST ALT Alkaline Phosphatase Troponin I 0.69 H* B-Natriuretic Peptide 06/30/16 06/30/16 06/30/16 01:14 01:14 05:58 WBC Hgb Hct Plt Count INR APTT Sodium 133 L Potassium 3.1 L D Chloride 111 H Carbon Dioxide 16 L BUN 32 H Creatinine 1.47 H Glucose 112 H Calcium 7.0 L D Magnesium 1.1 L Total Bilirubin 0.5 AST 14 ALT < 6 Alkaline Phosphatase 50 Troponin I 3.22 H* B-Natriuretic Peptide 1867 H 06/30/16 08:35 WBC Hgb Hct Plt Count INR APTT 99.6 H Sodium Potassium Chloride Carbon Dioxide BUN Creatinine Glucose Calcium Magnesium Total Bilirubin AST ALT Alkaline Phosphatase Troponin I B-Natriuretic Peptide Short CBC 06/30/16 06/29/16 06/29/16 Range/Units 01:14 18:07 15:29 WBC 2.9 L 3.4 L 3.2 L (4.3-11.1) K/mcL Hgb 7.4 L 8.5 L 8.5 L (12.9-16.9) g/dL Hct 22.7 L 27.2 L 26.5 L (37.5-50.1) % Plt Count 100 L 115 L 116 L (140-400) K/mcL Neutrophils # 1.5 L 2.2 (1.6-8.9) K/mcL BMP 06/30/16 06/29/16 Range/Units 01:14 15:29 Sodium 133 L 135 L (136-145) mEq/L Potassium 3.1 L D 4.5 (3.5-4.5) mEq/L Chloride 111 H 106 (98-109) mEq/L Carbon Dioxide 16 L 20 (19-29) mEq/L BUN 32 H 38 H (8-26) mg/dL Creatinine 1.47 H 1.82 H (0.72-1.25) mg/dL Glucose 112 H 104 H (70-99) mg/dL Calcium 7.0 L D 8.6 (8.6-10.8) mg/dL Cardiac Enzymes 06/30/16 06/30/16 06/29/16 Range/Units 05:58 01:14 18:07 Troponin I 3.22 H* 0.69 H* 0.11 H* (0-0.03) ng/mL 06/29/16 Range/Units 15:29 Troponin I 0.10 H* (0-0.03) ng/mL Liver Function 06/30/16 Range/Units 01:14 Total Bilirubin 0.5 (0.2-1.2) mg/dL AST 14 (5-34) Units/L ALT < 6 (0-55) Units/L Alkaline Phosphatase 50 (38-126) Units/L Albumin 2.4 L (3.5-5.0) g/dL Impressions Chest X-Ray 06/29/16 14:50 IMPRESSION: Cardiomegaly with left pleural effusion and basilar atelectasis. Questionable nodule left upper lobe adjacent to the hilum. Consider follow-up CT imaging to ensure lack of underlying true nodule versus vascular origin. D/ / 06/29/2016 15:26:21 Anthony Concepcion MD / donna Interpreting Provider: Anthony Concepcion MD Chest CT 06/29/16 17:56 IMPRESSION: Moderate left pleural effusion and atelectasis. No suspicious pulmonary nodules identified. D/ / Renaldo Salazar MD / Renaldo Salazar MD Interpreting Provider: Renaldo Salazar MD Active Medications Acetaminophen (Tylenol) 650 mg PO Q6HR PRN PRN Reason: Mild Pain (1-3) Stop: 12/29/16 21:26 Albuterol/Ipratropium (Duoneb) 3 ml IH [id number] PRN; Protocol PRN Reason: Shortness Of Breath/Wheezing Stop: 12/29/16 21:28 Aspirin (Aspirin Ec) 81 mg PO DAILY [facility] Stop: 12/30/16 09:01 Last Admin: 06/30/16 08:41 Dose: 81 mg Chlorhexidine Gluconate (Chlorhexidine Rinse) 15 ml MM BID [facility] Stop: 12/29/16 21:01 Last Admin: 06/30/16 08:41 Dose: 15 ml Clopidogrel Bisulfate (Plavix) 75 mg PO DAILY [facility] Stop: 12/30/16 09:01 Last Admin: 06/30/16 08:41 Dose: 75 mg Docusate Sodium (Colace) 100 mg PO BID PRN PRN Reason: Constipation Stop: 12/29/16 17:45 Heparin Sodium (Porcine) (Heparin) 4,000 unit 60 unit/kg (4000 unit) IVP Q6HR PRN PRN Reason: SEE COMMENTS Stop: 12/29/16 17:56 Heparin Sodium (Porcine) (Heparin) 2,000 unit 30 unit/kg (2000 unit) IVP Q6H PRN PRN Reason: SEE COMMENTS Stop: 12/29/16 17:56 Hydralazine HCl (Hydralazine) 50 mg PO Q8HR [facility] Stop: 12/30/16 00:01 Last Admin: 06/30/16 08:41 Dose: 50 mg Hydromorphone HCl (Dilaudid) 1 mg IVP Q4HR PRN PRN Reason: Severe Pain (7-10) Stop: 12/29/16 17:45 Sodium Chloride (0.9 % Sodium Chloride) 1,000 mls @ 75 mls/hr IVC .[id number] [facility]O Stop: 12/29/16 17:46 Last Admin: 06/30/16 08:38 Dose: 75 mls/hr Heparin Sodium/Dextrose (Heparin 25,000 Unit/500 Ml D5w) 25,000 unit in 500 mls @ 16.003 mls/hr IVC .Q24H [facility]O; 12 UNIT/KG/HR PRN Reason: Protocol Stop: 12/29/16 18:01 Last Titration: 06/30/16 09:16 Dose: 7.74 unit/kg/hr, 10.322 mls/hr Piperacillin Sod/Tazobactam (Sod 3.375 gm/ Dextrose) 100 mls @ 25 mls/hr IVPB Q8HR [facility]O PRN Reason: Protocol Stop: 12/30/16 00:01 Last Admin: 06/30/16 08:39 Dose: 25 mls/hr Nitroglycerin (Nitroglycerin) 25 mg in 250 mls @ 3 mls/hr IVC .Q24H [facility]O; 5 MCG/ MIN PRN Reason: Protocol Stop: 12/29/16 21:16 Last Admin: 06/29/16 23:05 Dose: 5 mcg/min, 3 mls/hr Diltiazem HCl 125 mg/ Dextrose 125 mls @ 5 mls/hr IVC .Q24H [facility]O; 5 MG/HR PRN Reason: Protocol Stop: 12/30/16 03:16 Last Titration: 06/30/16 06:08 Dose: 2.5 mg/hr, 2.5 mls/hr Lorazepam (Ativan) 0.5 mg IVP Q4H PRN PRN Reason: Agitation Stop: 12/29/16 23:01 Magnesium Hydroxide (Milk Of Magnesia Conc) 10 ml PO DAILY PRN PRN Reason: Indigestion Stop: 12/29/16 17:45 Megestrol Acetate (Megace) 200 mg PO BID [facility] Stop: 12/29/16 21:01 Last Admin: 06/30/16 08:41 Dose: 200 mg Metoprolol Tartrate (Lopressor) 50 mg PO BID [facility] Stop: 12/29/16 21:01 Last Admin: 06/30/16 08:42 Dose: 50 mg Metoprolol Tartrate (Lopressor) 5 mg IVP Q6HR PRN PRN Reason: Tachyarrhythmias Stop: 12/29/16 23:01 Mycophenolate Mofetil (Cellcept) 500 mg PO BID [facility] Stop: 12/29/16 21:01 Last Admin: 06/30/16 08:41 Dose: 500 mg Naloxone HCl (Narcan) 0.4 mg IVP Q2MIN PRN PRN Reason: Opioid Reversal Stop: 12/29/16 17:45 Omeprazole (Prilosec) 20 mg PO DAILY@0630 [facility] PRN Reason: Protocol Stop: 12/30/16 06:31 Last Admin: 06/30/16 05:34 Dose: Not Given Ondansetron HCl (Zofran) 4 mg IVP Q8HR PRN PRN Reason: Nausea And Vomiting Stop: 12/29/16 17:45 Pharmacy Profile Note (Patient Taking Own Medication) 0 each PO BID [facility] Stop: 12/29/16 21:01 Pharmacy Profile Note (Patient Taking Own Medication) 0 each PO BID [facility] Stop: 12/29/16 21:01 Last Admin: 06/30/16 08:42 Dose: Not Given Prednisone (Prednisone) 5 mg PO DAILY [facility] Stop: 12/30/16 09:01 Last Admin: 06/30/16 08:41 Dose: 5 mg Quetiapine Fumarate (Seroquel) 200 mg PO HS [facility] Stop: 12/29/16 21:01 Last Admin: 06/29/16 22:02 Dose: 200 mg Senna (Senna) 8.6 mg PO BID PRN PRN Reason: Constipation Stop: 12/29/16 17:48 Sertraline HCl (Zoloft) 100 mg PO DAILY [facility] Stop: 12/30/16 09:01 Last Admin: 06/30/16 08:41 Dose: 100 mg Terazosin HCl (Hytrin) 1 mg PO HS [facility] Stop: 12/29/16 21:01 Last Admin: 06/29/16 22:02 Dose: 1 mg Trazodone HCl (Trazodone) 200 mg PO HS [facility] Stop: 12/29/16 21:01 Last Admin: 06/29/16 22:02 Dose: 200 mg Vitamin D (Vitamin D) 1,000 unit PO DAILY [facility] Stop: 12/30/16 09:01 Last Admin: 06/30/16 08:41 Dose: 1,000 unit - Imaging and Cardiology Chest Xray: report reviewed - EKG Interpretation EKG results cardiology: personally reviewed, other (24 hour tele AVG HR 84, SR, appears to have had episodes overnight of sinus tach.) Consult Discharge Plan - Plan Referrals: NO,PCP [Non-Partnered Physician] -
[2016-06-30] MEDS: Isosorbide MONOnitrate (24 HR) 30 MG TAB.ER.24H PO SCH (11:17)
[2016-06-30] MEDS: Furosemide 40 MG/4 ML VIAL IVP SCH (11:17)
--- NOTE | 2016-06-30 11:56 | Internal Med Progress Note ---
Date of Encounter: 06/30/16 Time of Encounter: 11:54 - Assessment and plan (1) NSTEMI (non-ST elevated myocardial infarction) Current Visit: Yes Status: Acute Assessment and plan: 70/male Admitted for chest pain. TABBY: 4 Was started on heparin GTT Rising troponin, 0.1, 0.11, 0.69, 3.22. EKG: Sinus tach Noted that there was a drop in hemoglobin from 8.5-7.4 Cardiology on the board. Patient and family chose medical management. ASA/BB/Plavix/Imdur. We will follow the recommendations from cardiology. Not on statin in view of drug drug interaction. Not on anticoagulation in view of drop in hemoglobin? blood loss (2) HTN (hypertension) Current Visit: Yes Status: Chronic Assessment and plan: Presently stable and we will continue to monitor. Qualifiers: Hypertension type: essential hypertension Qualified Code(s): I10 - Essential (primary) hypertension (3) Anemia Current Visit: Yes Status: Chronic Assessment and plan: At this point etiology of anemia is not clear. In view of underlying coronary/cardiac impairment, We will transfuse patient 2 PRBC. Plan discussed with the patient/family: The verbalize understanding Qualifiers: Anemia type: unspecified type Qualified Code(s): D64.9 - Anemia, unspecified (4) Chronic systolic CHF (congestive heart failure) Current Visit: Yes Status: Chronic Assessment and plan: Patient is known to have a chronic systolic congestive heart failure. Last known EF as per is 35%. (5) CAD (coronary artery disease) Current Visit: Yes Status: Acute Assessment and plan: Previous coronary artery disease. previous coronary artery bypass graftx3 V Qualifiers: Coronary Disease-Associated Artery/Lesion type: unspecified vessel or lesion type [place] vs. transplanted heart: [place] heart Associated angina: angina presence unspecified Qualified Code(s): I25.10 - Atherosclerotic heart disease of [place] coronary artery without angina pectoris - Subjective Interval history: Patient seen and examined. Chart reviewed. Patient is comfortably sitting in bed. Family at bedside. Patient denies chest pain, shortness of breath, abdominal pain, nausea and vomiting. - Constitutional Vitals: Temp Pulse Resp BP Pulse Ox 97.7 F 68 18 131/58 100 06/30/16 11:28 06/30/16 11:28 06/30/16 11:28 06/30/16 11:28 06/30/16 11:28 General appearance: Present: A&O X 3, pleasant, no acute distress, answers questions appropriately - Head Head exam: Present: atraumatic, normocephalic - Eye Eye exam: Present: PERRL, conjuntiva pink, sclera anicteric Pupils: Present: PERRL - Neck Neck exam general surgery: Present: supple, trachea midline. Absent: lymphadenopathy - Respiratory Respiratory exam: Present: CTAB. Absent: accessory muscle use, rales, rhonchi, wheezes - Cardiovascular Cardiovascular exam: Present: RRR, +S1, +S2. Absent: diastolic murmur, gallop, rubs, systolic murmur - GI/Abdominal GI/Abdominal exam: Present: normal bowel sounds, soft, no peritoneal signs. Absent: distended, tenderness - Extremities Exam Extremities exam: Present: warm, radial pulses palpable and symetrical. Absent : calf tenderness, cyanotic, pedal edema - Neurological Exam Neurological exam: Present: CN II-XII intact, oriented X3, no focal deficits. Absent: pronater drift, facial droop, speech deficit - Skin Skin exam: Present: dry, intact Internal Medicine: Result - Labs CBC & Chem 7: 06/30/16 01:14 06/30/16 01:14 Labs: Short CBC 06/29/16 06/30/16 Range/Units 18:07 01:14 WBC 3.4 L 2.9 L (4.3-11.1) K/mcL Hgb 8.5 L 7.4 L (12.9-16.9) g/dL Hct 27.2 L 22.7 L (37.5-50.1) % Plt Count 115 L 100 L (140-400) K/mcL Neutrophils # 1.5 L (1.6-8.9) K/mcL BMP 06/30/16 01:14 Sodium 133 L Potassium 3.1 L D Chloride 111 H Carbon Dioxide 16 L BUN 32 H Creatinine 1.47 H Glucose 112 H Calcium 7.0 L D Cardiac Enzymes 06/29/16 06/30/16 06/30/16 Range/Units 18:07 01:14 05:58 Troponin I 0.11 H* 0.69 H* 3.22 H* (0-0.03) ng/mL Liver Function 06/30/16 Range/Units 01:14 Total Bilirubin 0.5 (0.2-1.2) mg/dL AST 14 (5-34) Units/L ALT < 6 (0-55) Units/L Alkaline Phosphatase 50 (38-126) Units/L Albumin 2.4 L (3.5-5.0) g/dL - ABG Interpretation ABG results: PT/INR, D-dimer PT 11.7 Seconds (9.4-12.1) 06/29/16 18:07 - Impressions Impressions Chest CT 06/29/16 17:56 IMPRESSION: Moderate left pleural effusion and atelectasis. No suspicious pulmonary nodules identified. D/ / Renaldo Salazar MD / Renaldo Salazar MD Interpreting Provider: Renaldo Salazar MD Consult Discharge Plan - Plan Referrals: NO,PCP [Non-Partnered Physician] -
--- NOTE | 2016-06-30 13:27 | ECHO - Doppler Report ---
Echocardiogram Name: Naveed De La Paz Date of Study: 06/30/2016 Date: 1945 Ht: 73.0 in Medical Record#: [id number] Age: 70 Wt: 158.0 lb Gender: Male BSA: 1.95 Order #: [id number] Location: 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 There are regional wall motion abnormalities, see diagram below. Mild left ventricular diastolic dysfunction. Normal right ventricular size and function. Moderately dilated left atrium. A pleural effusion is noted. Moderate-severely calcified aortic valve leaflets with severely reduced leaflet motion. Severe aortic stenosis. Peak velocity 4.36 m/sec, mean gradient 45 mmHg, aortic valve area 0.70cm2. Mild pulmonary hypertension. Estimated RVSP = 45 mmHg. Left Ventricular Wall Motion: Rest Echo Findings The apex, apical inferior, apical anterior, mid anterior, basal anterior, apical septal, mid inferior septal, basal inferior septal, mid anterior septal and basal anterior septal sow were hypokinetic. All other wall segments showed normal motion. Findings: Study Quality * Technically adequate exam. ECG Findings * Normal sinus rhythm. Left Ventricle * Mild LV systolic dysfunction, LVEF 45-50%. There are regional wall motion abnormalities, see diagram below. * Normal LV chamber size and wall thickness. * Mild left ventricular diastolic dysfunction. Right Ventricle * Normal right ventricular size and function. Left Atrium * Moderately dilated left atrium. Right Atrium * Normal right atrial size. Aorta * Normally sized aortic root. Pericardium * There is a trivial pericardial effusion present. IVC * The IVC is not well evaluated. Pleural Effusion * A pleural effusion is noted. Aortic Valve * Moderate-severely calcified aortic valve leaflets with severely reduced leaflet motion. * Severe aortic stenosis. Peak velocity 4.36 m/sec, mean gradient 45 mmHg, aortic valve area 0.70cm2. * Trace aortic regurgitation. Mitral Valve * Mild-moderate mitral annular calcification * No mitral stenosis. * Trace mitral regurgitation. Tricuspid Valve * Normal tricuspid valve structure. * No tricuspid stenosis. * Mild tricuspid regurgitation. * Mild pulmonary hypertension. Estimated RVSP = 45 mmHg. Pulmonic Valve * Pulmonic valve not well visualized. * No pulmonic stenosis. * No pulmonic regurgitation. History Hypertension Diabetes Hypercholesteremia Family History of CAD History of CAD/PTCA Myocardial Infarction Coronary Artery Bypass Graft Congestive Heart Failure Measurements: BP: 118/ 60 2D Normal Values RVIDd: 2.80 cm IVSd: 1.00 cm 0.6 - 1.0 cm LVIDd: 5.40 cm 3.7 - 5.6 cm LVPWd: 1.00 cm 0.6 - 1.1 cm LVIDs: 4.00 cm 1.5 - 3.6 cm AO: 3.30 cm < 4.0 cm LVOT Diam: 2.00 cm LA volume: 78 Mitral Valve Peak E:1.09 m/sec Peak A:1.42 m/sec E/A Ratio:0.8 Peak E' Lat Chris:6.24 cm/s Peak E' Med Chris:5.75 cm/s E/E' Lat Ratio:17.5 E/E' Med Ratio:19 Aortic Valve Peak Chris:4.36 m/sec Peak Grad:76.00 mmHg Mean Grad:45.00 mmHg Valve Area:.70 cm2 Tricuspid Valve TV Regurg Peak Grad: 40.00mmHg TV Regurg Peak Chris: 3.14m/sec Updated by Zach Matta MD, [facility] on 06/30/2016 1:23:13 PM electronically signed on 06/30/2016 1:23:46 PM with status of Final Wall Motion Elena: 1=Normal, 2=Hypokinesis, 3=Akinesis, 4=Dyskinesis, 5=Aneurysmal, 6=Hyperkinetic, X=Not Visualized (Blank)=Missing
--- NOTE | 2016-06-30 14:20 | Nephrology Progress Note ---
Date of Encounter: 06/30/16 Time of Encounter: 14:18 Subjective Principal diagnosis: CKD Interval history: Mr. De La Paz is a 70 man who presented with chest pain and was found to have an NSTEMI. Nephrology was consulted for renal protective measures. Patient awoke briefly, but then fell asleep before answering questions. Objective - Vital Signs Vital signs: Vital Signs Temp Pulse Resp BP Pulse Ox 06/30/16 11:28 97.7 F 68 18 131/58 100 06/30/16 08:00 100 06/30/16 07:19 97.6 F 68 18 118/60 100 06/30/16 04:11 98.1 F 114 18 145/74 98 06/30/16 03:00 136/89 06/29/16 22:52 98.4 F 86 18 169/78 100 06/29/16 21:15 97.9 F 129 20 155/90 06/29/16 19:32 98.3 F 79 19 174/64 92 06/29/16 17:49 98.3 F 79 14 182/68 99 Intake and Output 06/29/16 06/30/16 06/30/16 23:59 07:59 15:59 Intake Total 0 / 0 231 / 231 1088 / 1088 Output Total 400 / 400 Balance 0 / 0 -169 / -169 1088 / 1088 Intake: IV Fluids 231 / 231 1088 / 1088 0.9 % Sodium Chloride 1, 1000 / 1000 000 ML @ 75 mls/hr IVC . [id number] AMANDO Rx#: [id number] Cardizem 125 MG In 25 / 25 Dextrose 5% 100 ML @ 5 MG /HR 5 mls/hr IVC .Q24H AMANDO Rx#:[id number] Heparin 25,000 UNIT/500 106 / 106 88 / 88 ML D5W 25,000 unit In 500 ml @ 12 UNIT/KG/HR 16. 003 mls/hr IVC .Q24H AMANDO Rx#:[id number] Zosyn 3.375 GM In 100 / 100 Dextrose 5% (Minibag+) 100 ML 100 ML @ 25 mls/hr IVPB Q8HR AMANDO Rx#: [id number] Oral 0 / 0 0 / 0 Output: Urine 400 / 400 Other: # Voids 0 0 # Urine Diapers 1 Weight 71.8 kg Blood Glucose* 139 102 113 - Lab 04/30/17 01:14 06/30/16 01:14 Most recent lab results Calcium 7.0 mg/dL (8.6-10.8) L D 06/30/16 01:14 Magnesium 1.1 mg/dL (1.6-2.6) L 06/30/16 01:14 Consult Discharge Plan - Plan Referrals: NO,PCP [Non-Partnered Physician] -
--- NOTE | 2016-06-30 14:28 | Nephrology Consult Note ---
Date of Encounter: 06/30/16 Time of Encounter: 14:21 Assessment and Plan (1) CKD (chronic kidney disease) Current Visit: Yes Status: Chronic Patient with ESRD s/p renal transplant. Now with CKD stage Recommend continuing with current post transplant regimen. Agree with hydration. Per the notes it appears that the patient will undergo medical management for his NSTEMI. Adjust medications for renal function and avoid nephrotoxic agents. Qualifiers: Chronic kidney disease stage: stage 3 (moderate) Qualified Code(s): N18.3 - Chronic kidney disease, stage 3 (moderate) (2) NSTEMI (non-ST elevated myocardial infarction) Current Visit: Yes Status: Acute Per cardiology. (3) Acidosis Current Visit: Yes Status: Acute provide sodium bicarbonate (4) Pneumonia Current Visit: Yes Status: Acute per primary team. Qualifiers: Pneumonia type: due to unspecified organism Laterality: left Lung location: lower lobe of lung Qualified Code(s): J18.1 - Lobar pneumonia, unspecified organism History of Present Illness - Reason for Consult Consult date: 06/30/16 Chronic Kidney Disease - Chief Complaint CKD - History of Present Illness Mr. De La Paz is a 70 man who presented with chest pain and was found to have an NSTEMI. Nephrology was consulted for renal protective measures. Patient awoke briefly, but then fell asleep before answering questions. Past Med Surg Social Fam HX - Past Medical History Medical history: CHF, COPD, diabetes, dialysis, myocardial infarction Psychiatric history: anxiety, depression - Past Surgical History Surgical History: coronary bypass (CABG), transplant - Social History Smoking Status: Never smoker Smokeless Tobacco Status: No Alcohol use: none Drug use: none - Family History Mother Living Status: Cause of : heart disease Hx Family Cardiac Disorders: Yes Hx Family Cancer: Yes (colon) Father Living Status: Cause of : bladder cancer Hx Family Cardiac Disorders: Yes Hx Family Cancer: Yes Medications and Allergies Aspirin [Lo-Dose Aspirin EC] 81 mg PO DAILY 06/29/16 [History] Chlorhexidine Gluconate [Periogard] 15 ml MM BID 06/29/16 [History] Cholecalciferol (D-3) [Vitamin D] 4,000 unit PO DAILY 06/29/16 [History] Clopidogrel [Plavix] 75 mg PO DAILY 06/29/16 [History] CycloSPORINE (SandIMMUNE) [SandIMMUNE] 50 mg PO BID 06/29/16 [History] Docusate [Colace] 100 mg PO BID 06/29/16 [History] HYDROcodone/Acet 5/325 mg 5 - 325 mg PO DAILY PRN MDD 1 06/29/16 [History] HydrALAZINE 37.5 mg PO Q8HR 06/29/16 [History] Metoprolol [Lopressor] 25 mg PO BID 06/29/16 [History] Mycophenolate Mofetil [Cellcept] 500 mg PO BID 06/29/16 [History] [place]-3/Dha/Epa/Fish Oil [Fish Oil 1,000 mg Softgel] 2,000 mg PO BID 06/29/16 [ History] Omeprazole [PriLOSEC] 20 mg PO DAILY 06/29/16 [History] PredniSONE [Zhane] 5 mg PO DAILY 06/29/16 [History] Quetiapine Fumarate [Seroquel] 200 mg PO HS 06/29/16 [History] Sennosides [Senna] 8.6 mg PO BID PRN 06/29/16 [History] Sertraline [Zoloft] 100 mg PO DAILY 06/29/16 [History] Terazosin [Hytrin] 1 mg PO HS 06/29/16 [History] Trazodone HCl 200 mg PO HS 06/29/16 [History] Allergies gabapentin Allergy (Verified 06/29/16 17:21) Swelling of Lip/Tongue/Throat pregabalin [From Lyrica] Allergy (Verified 07/07/15 18:02) Swelling of Lip/Tongue/Throat Review of Systems ROS unobtainable: due to mental status, other (patient asleep. ) All Systems: reviewed and no additional remarkable complaints except as stated Exam - Vital Signs Vital signs: Initial Vital Signs Temp Pulse Resp BP Pulse Ox 98.6 F 77 18 148/65 99 06/29/16 14:36 06/29/16 14:36 06/29/16 14:36 06/29/16 14:36 06/29/16 14:36 Vital Signs - Last 8 Hours Temp Pulse Resp BP Pulse Ox 06/30/16 11:28 97.7 F 68 18 131/58 100 06/30/16 08:00 100 06/30/16 07:19 97.6 F 68 18 118/60 100 Intake and Output 06/29/16 06/30/16 06/30/16 23:59 07:59 15:59 Intake Total 0 / 0 231 / 231 1088 / 1088 Output Total 400 / 400 Balance 0 / 0 -169 / -169 1088 / 1088 Intake: IV Fluids 1088 / 1088 0.9 % Sodium Chloride 1, 1000 / 1000 000 ML @ 75 mls/hr IVC . [id number] AMANDO Rx#: [id number] Cardizem 125 MG In 25 / 25 Dextrose 5% 100 ML @ 5 MG /HR 5 mls/hr IVC .Q24H AMANDO Rx#:[id number] Heparin 25,000 UNIT/500 106 / 106 88 / 88 ML D5W 25,000 unit In 500 ml @ 12 UNIT/KG/HR 16. 003 mls/hr IVC .Q24H AMANDO Rx#:[id number] Zosyn 3.375 GM In 100 / 100 Dextrose 5% (Minibag+) 100 ML 100 ML @ 25 mls/hr IVPB Q8HR AMANDO Rx#: [id number] Oral 0 / 0 0 / 0 Output: Urine 400 / 400 Other: # Voids 0 0 # Urine Diapers 1 Weight 71.8 kg Blood Glucose* 139 102 113 - General Appearance General appearance: well-developed, well-nourished EENT: ATNC Neck: supple Respiratory: clear (anteriorly. ) Cardiology: no edema, regular rate Gastrointestinal: normoactive bowel sounds, no tenderness Integumentary: warm and dry Neurologic: alert and oriented x3 Musculoskeletal: no cyanosis Psychiatric: mood/affect appropriate Results - Lab Results 06/30/16 01:14 06/30/16 01:14 Most recent lab results Calcium 7.0 mg/dL (8.6-10.8) L D 06/30/16 01:14 Magnesium 1.1 mg/dL (1.6-2.6) L 06/30/16 01:14 Consult Discharge Plan - Plan Referrals: NO,PCP [Non-Partnered Physician] -
[2016-06-30] MEDS: CYCLOSPORINE 25 MG PO SCH ×2 (14:31→21:25)
[2016-06-30] MEDS ORDERED: 0.9 % Sodium Chloride 500 ML ONE (14:35)
[2016-06-30] MEDS: Sodium Bicarbonate 75 MEQ in 0.45 % Sodium Chloride 1,000 ML IVC SCH (15:30)
[2016-06-30] MEDS: *HR* Heparin 5,000 UNIT/ML VIAL SQ SCH (16:21)
--- NOTE | 2016-06-30 17:53 | Electrocardiograph Report ---
[address] [place] [address] Test Date: 2016-06-29 Pat Name: Naveed De La Paz Department: 104 Room: 2NE17 Gender: M [employer]: : 1945 Requested By: Meet Calderon Order Number: [id number] Reading MD: Kathy Han Measurements Intervals [place] Rate: 77 P: -72 ND: 149 QRS: 38 QRSD: 96 T: 164 QT: 375 QTc: 407 Interpretive Statements SINUS RHYTHM ST DEVIATION AND MODERATE T-WAVE ABNORMALITY, CONSIDER LATERAL ISCHEMIA Baseline artifact Electronically Signed On 06-30-2016 17:51:39 EDT by Kathy Han
--- NOTE | 2016-06-30 18:01 | Electrocardiograph Report ---
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
--- NOTE | 2016-06-30 18:01 | Electrocardiograph Report ---
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
[2016-06-30] MEDS: traZODone 50 MG TABLET PO SCH (21:25)
[2016-06-30] MEDS ORDERED: 0.9 % Sodium Chloride 250 ML ONE (21:55)
[2016-06-30] MEDS: Nitroglycerin 25 MG/250 ML INFUS..BTL IVC SCH (23:48)
[2016-07-01] MEDS ORDERED: 0.9 % Sodium Chloride 250 ML ONE (03:29)
[2016-07-01] MEDS: *HR* Heparin 5,000 UNIT/ML VIAL SQ SCH (06:50)
[2016-07-01] MEDS: Piperacillin/Tazobactam 3.375 GM in D5% in Water (Mini-Bag+) 100 ML IVPB SCH (08:54)
[2016-07-01] MEDS: Isosorbide MONOnitrate (24 HR) 30 MG TAB.ER.24H PO SCH (08:54)
[2016-07-01] MEDS: Aspirin Enteric Coated 81 MG Tablet PO SCH (08:54)
[2016-07-01] MEDS: hydrALAZINE 25 MG TABLET PO SCH (08:54)
[2016-07-01] MEDS: Chlorhexidine Rinse 15 ML MOUTHWASH MM SCH (08:54)
[2016-07-01] MEDS: predniSONE 5 MG TABLET PO SCH (08:54)
[2016-07-01] MEDS: Cholecalciferol (D-3) 1,000 UNIT TABLET PO SCH (08:55)
[2016-07-01] MEDS: Furosemide 40 MG/4 ML VIAL IVP SCH (08:55)
[2016-07-01] MEDS: Sodium Bicarbonate 75 MEQ in 0.45 % Sodium Chloride 1,000 ML IVC SCH (08:56)
[2016-07-01] MEDS ORDERED: Metoprolol XL (24 HR) Succ 50 MG TAB.ER.24H PO SCH (09:00)
[2016-07-01] MEDS: (Omega-3/Dha/Epa/Fish Oil [Fish Oil 1,000 Mg Softgel] PO SCH (09:00)
[2016-07-01] MEDS: CYCLOSPORINE 25 MG PO SCH (09:00)
[2016-07-01 11:39] VITALS: BP 130/66
--- NOTE | 2016-07-01 11:50 | Cardiology Progress Note ---
Date of Encounter: 07/01/16 Time of Encounter: 11:30 Assessment and Plan (1) Severe aortic stenosis Current Visit: Yes Status: Acute TTE 06/30/16: EF 45-50% with regional wall motion abnormalities, moderate- severely calcified aortic valve leaflets with severely reduced leaflet motion; severe (peak velocity=4.36, MG=45 mmHg, JACKELYN 0.70 cm2). Recommend AVR, possible TAVR given significant co-morbidities. Patient family agreeable to evaluation at tertiary center, [facility]. Has been accepted for transfer to today. (2) Acute on chronic systolic (congestive) heart failure Current Visit: Yes Status: Acute Acute on chronic. Per , known EF of 35%. TTE shows EF 45-50%. Switch BB to Toprol XL. Recommend JEFF-I if renal function will allow--consider addition as outpatient. BNP 1866. CXR and CT show left pleural effusion. Recommend gentle diuresis. On Lasix IV 40mg daily. Monitor renal function closely. Recommend strict I/Os, daily weights, Na and fluid restriction. (3) CAD (coronary artery disease) Current Visit: Yes Status: Acute Hx of 3V CABG in 2013 at [facility]. ASA, Statin, BB. Qualifiers: Coronary Disease-Associated Artery/Lesion type: unspecified vessel or lesion type [place] vs. transplanted heart: [place] heart Associated angina: angina presence unspecified Qualified Code(s): I25.10 - Atherosclerotic heart disease of [place] coronary artery without angina pectoris (4) NSTEMI (non-ST elevated myocardial infarction) Current Visit: Yes Status: Acute Troponins 0.10, 0.11, 0.69, 3.22. Chest pain/pressure that radiated down left arm. No recurrence since admission. HGB 7.4. Was 8.5 on admission, 11.5 07/2015. Will stop heparin gtt. Wean off nitro gtt. EKGs reviewed overnight--appears sinus tach, not A-Flutter. Reviewed with Dr. Matta. Per , pt had 3V CABG at [facility] in 2013 and has a known EF of 35%. She states there was a fourth vessel that needed bypass that they were unable to do. Pt is on ASA, Plavix,BB. No statin due to interaction with immunosuppressants. Can stop plavix if needed for anemia. Plan for transfer to [facility] for TAVR, AVR evaluation; will likely require ischemic evaluation. (5) Anemia Current Visit: Yes Status: Chronic HGB was 11.5 07/2015, 8.5 on admission, 7.4 today. Will stop heparin gtt. Pt's reports last GI workup was 4 years ago. Recommend primary team consider GI evaluation. Qualifiers: Anemia type: unspecified type Qualified Code(s): D64.9 - Anemia, unspecified (6) CKD (chronic kidney disease) Current Visit: Yes Status: Chronic Hx of renal transplant with subsequent renal failure. Primary team consulted nephrology. Qualifiers: Chronic kidney disease stage: stage 3 (moderate) Qualified Code(s): N18.3 - Chronic kidney disease, stage 3 (moderate) (7) Cardiomyopathy Current Visit: Yes Status: Chronic Presumed ischemic with hx of 3V CABG. Per , EF known to be 35%. Switch BB to Toprol XL. Recommend JEFF-I if renal function will tolerate. Qualifiers: Cardiomyopathy type: ischemic Qualified Code(s): I25.5 - Ischemic cardiomyopathy Discussion w patient/family: The assessment and plan as outlined above was discussed with the patient and/or family members who expressed understanding and agreement. All questions were answered. Thank you for involving us in the care of your patient. Please call with any questions. Subjective Principal diagnosis: CKD Interval history: Seen and examined. reports worsening shortness of breath over the past several weeks, she notes that he had poor po intake and appetite. [facility], was transferred here to [facility] due to elevated troponin and chest pain. Lethargic, responds with verbal stimuli, quickly falls back asleep. Discussed with Dr. Draper, patient has been accepted at [facility] for inpatient transfer re: severe . Objective Vital Signs, Last 4 Hours Temp Pulse Resp BP Pulse Ox 07/01/16 11:35 97.6 F 109 15 130/66 94 General: Other (appears acutely ill) Cardiac: Reg Rate and Rhythm (tachycardiac) Neuro: Other (lethargic, drowsy) Abdomen: Soft Musculoskeletal: No Chest Wall Tenderness Extremities: No Edema, Normal Pulses Results 06/30/16 01:14 06/30/16 01:14 Active Medications Acetaminophen (Tylenol) 650 mg PO Q6HR PRN PRN Reason: Mild Pain (1-3) Stop: 12/29/16 21:26 Albuterol/Ipratropium (Duoneb) 3 ml IH D1QICSA PRN; Protocol PRN Reason: Shortness Of Breath/Wheezing Stop: 12/29/16 21:28 Aspirin (Aspirin Ec) 81 mg PO DAILY [facility] Stop: 12/30/16 09:01 Last Admin: 07/01/16 08:54 Dose: 81 mg Chlorhexidine Gluconate (Chlorhexidine Rinse) 15 ml MM BID [facility] Stop: 12/29/16 21:01 Last Admin: 07/01/16 08:54 Dose: 15 ml Clopidogrel Bisulfate (Plavix) 75 mg PO DAILY [facility] Stop: 12/30/16 09:01 Last Admin: 07/01/16 08:54 Dose: 75 mg Docusate Sodium (Colace) 100 mg PO BID PRN PRN Reason: Constipation Stop: 12/29/16 17:45 Furosemide (Lasix) 40 mg IVP DAILY [facility] Stop: 12/30/16 11:01 Last Admin: 07/01/16 08:55 Dose: 40 mg Heparin Sodium (Porcine) (Heparin) 5,000 unit SQ Q12HCO [facility] Stop: 12/30/16 18:01 Last Admin: 07/01/16 06:50 Dose: 5,000 unit Hydralazine HCl (Hydralazine) 50 mg PO Q8HR AMANDO Stop: 12/30/16 00:01 Last Admin: 07/01/16 08:54 Dose: 50 mg Hydromorphone HCl (Dilaudid) 1 mg IVP Q4HR PRN PRN Reason: Severe Pain (7-10) Stop: 12/29/16 17:45 Piperacillin Sod/Tazobactam (Sod 3.375 gm/ Dextrose) 100 mls @ 25 mls/hr IVPB Q8HR AMANDO PRN Reason: Protocol Stop: 12/30/16 00:01 Last Admin: 07/01/16 08:54 Dose: 25 mls/hr Nitroglycerin (Nitroglycerin) 25 mg in 250 mls @ 3 mls/hr IVC .Q24H AMANDO; 5 MCG/ MIN PRN Reason: Protocol Stop: 12/29/16 21:16 Last Admin: 06/30/16 23:48 Dose: 5 mcg/min, 3 mls/hr Sodium Bicarbonate 75 meq/ (Sodium Chloride) 1,075 mls @ 75 mls/hr IVC .[id number] [facility] Stop: 12/30/16 14:46 Last Admin: 07/01/16 08:56 Dose: 75 mls/hr Isosorbide Mononitrate (Imdur) 30 mg PO DAILY [facility] Stop: 12/30/16 11:01 Last Admin: 07/01/16 08:54 Dose: 30 mg Lorazepam (Ativan) 0.5 mg IVP Q4H PRN PRN Reason: Agitation Stop: 12/29/16 23:01 Magnesium Hydroxide (Milk Of Magnesia Conc) 10 ml PO DAILY PRN PRN Reason: Indigestion Stop: 12/29/16 17:45 Megestrol Acetate (Megace) 200 mg PO BID [facility] Stop: 12/29/16 21:01 Last Admin: 07/01/16 09:00 Dose: 200 mg Metoprolol Succinate (Toprol Xl) 100 mg PO DAILY [facility] Stop: 12/31/16 09:01 Last Admin: 07/01/16 08:54 Dose: 100 mg Metoprolol Tartrate (Lopressor) 5 mg IVP Q6HR PRN PRN Reason: Tachyarrhythmias Stop: 12/29/16 23:01 Mycophenolate Mofetil (Cellcept) 500 mg PO BID [facility] Stop: 12/29/16 21:01 Last Admin: 07/01/16 09:00 Dose: 500 mg Naloxone HCl (Narcan) 0.4 mg IVP Q2MIN PRN PRN Reason: Opioid Reversal Stop: 12/29/16 17:45 Omeprazole (Prilosec) 20 mg PO DAILY@0630 AMANDO PRN Reason: Protocol Stop: 12/30/16 06:31 Last Admin: 07/01/16 06:50 Dose: 20 mg Ondansetron HCl (Zofran) 4 mg IVP Q8HR PRN PRN Reason: Nausea And Vomiting Stop: 12/29/16 17:45 Pharmacy Profile Note (Patient Taking Own Medication) 0 each PO BID [facility] Stop: 12/29/16 21:01 Last Admin: 07/01/16 09:00 Dose: Not Given Pharmacy Profile Note (Patient Taking Own Medication) 0 each PO BID [facility] Stop: 12/29/16 21:01 Last Admin: 07/01/16 09:00 Dose: Not Given Prednisone (Prednisone) 5 mg PO DAILY [facility] Stop: 12/30/16 09:01 Last Admin: 07/01/16 08:54 Dose: 5 mg Quetiapine Fumarate (Seroquel) 200 mg PO HS [facility] Stop: 12/29/16 21:01 Last Admin: 06/30/16 21:24 Dose: 200 mg Senna (Senna) 8.6 mg PO BID PRN PRN Reason: Constipation Stop: 12/29/16 17:48 Sertraline HCl (Zoloft) 100 mg PO DAILY [facility] Stop: 12/30/16 09:01 Last Admin: 07/01/16 08:54 Dose: 100 mg Terazosin HCl (Hytrin) 1 mg PO HS [facility] Stop: 12/29/16 21:01 Last Admin: 06/30/16 21:24 Dose: 1 mg Trazodone HCl (Trazodone) 200 mg PO HS [facility] Stop: 12/29/16 21:01 Last Admin: 06/30/16 21:25 Dose: 200 mg Vitamin D (Vitamin D) 1,000 unit PO DAILY [facility] Stop: 12/30/16 09:01 Last Admin: 07/01/16 08:55 Dose: 1,000 unit - Imaging and Cardiology Echo: report reviewed - EKG Interpretation EKG results cardiology: personally reviewed Consult Discharge Plan - Plan Referrals: [facility] [Outside] Prescriptions: Isosorbide MONOnitrate (24 HR) [Imdur] 30 mg PO DAILY #30 tab.er.24h Metoprolol XL (24 HR) Succ [Toprol Xl] 100 mg PO DAILY #30 tab.er.24h
--- NOTE | 2016-07-01 11:58 | Discharge Summary ---
Date of Encounter: 07/01/16 Time of Encounter: 11:52 - Discharge Diagnosis (1) Severe aortic stenosis Priority: Primary Status: Acute (2) NSTEMI (non-ST elevated myocardial infarction) Priority: Primary Status: Acute (3) HTN (hypertension) Priority: Secondary Status: Chronic Qualifiers: Hypertension type: essential hypertension Qualified Code(s): I10 - Essential (primary) hypertension (4) Anemia Priority: Secondary Status: Chronic Qualifiers: Anemia type: unspecified type Qualified Code(s): D64.9 - Anemia, unspecified (5) Chronic systolic CHF (congestive heart failure) Priority: Secondary Status: Chronic (6) CAD (coronary artery disease) Priority: Secondary Status: Acute Qualifiers: Coronary Disease-Associated Artery/Lesion type: unspecified vessel or lesion type [place] vs. transplanted heart: [place] heart Associated angina: angina presence unspecified Qualified Code(s): I25.10 - Atherosclerotic heart disease of [place] coronary artery without angina pectoris - Discharge Medications Prescriptions: Isosorbide MONOnitrate (24 HR) [Imdur] 30 mg PO DAILY #30 tab.er.24h Metoprolol XL (24 HR) Succ [Toprol Xl] 100 mg PO DAILY #30 tab.er.24h Home Medications: Aspirin [Lo-Dose Aspirin EC] 81 mg PO DAILY 06/29/16 [History] Chlorhexidine Gluconate [Periogard] 15 ml MM BID 06/29/16 [History] Cholecalciferol (D-3) [Vitamin D] 4,000 unit PO DAILY 06/29/16 [History] Clopidogrel [Plavix] 75 mg PO DAILY 06/29/16 [History] CycloSPORINE (SandIMMUNE) [SandIMMUNE] 50 mg PO BID 06/29/16 [History] Docusate [Colace] 100 mg PO BID 06/29/16 [History] HYDROcodone/Acet 5/325 mg 5 - 325 mg PO DAILY PRN MDD 1 06/29/16 [History] HydrALAZINE 37.5 mg PO Q8HR 06/29/16 [History] Metoprolol [Lopressor] 25 mg PO BID 06/29/16 [History] Mycophenolate Mofetil [Cellcept] 500 mg PO BID 06/29/16 [History] [place]-3/Dha/Epa/Fish Oil [Fish Oil 1,000 mg Softgel] 2,000 mg PO BID 06/29/16 [ History] Omeprazole [PriLOSEC] 20 mg PO DAILY 06/29/16 [History] PredniSONE [Zhane] 5 mg PO DAILY 06/29/16 [History] Quetiapine Fumarate [Seroquel] 200 mg PO HS 06/29/16 [History] Sennosides [Senna] 8.6 mg PO BID PRN 06/29/16 [History] Sertraline [Zoloft] 100 mg PO DAILY 06/29/16 [History] Terazosin [Hytrin] 1 mg PO HS 06/29/16 [History] Trazodone HCl 200 mg PO HS 06/29/16 [History] Isosorbide MONOnitrate (24 HR) [Imdur] 30 mg PO DAILY #30 tab.er.24h 07/01/16 [ Rx] Metoprolol XL (24 HR) Succ [Toprol Xl] 100 mg PO DAILY #30 tab.er.24h 07/01/16 [ Rx] Allergies/Adverse Reactions: Allergies gabapentin Allergy (Verified 06/29/16 17:21) Swelling of Lip/Tongue/Throat pregabalin [From Lyrica] Allergy (Verified 07/07/15 18:02) Swelling of Lip/Tongue/Throat Procedures/tests Complete & Pending: Procedures Performed prior 72 hours Category Date Time Status CT chest wo con [CT] Routine Cat Scan 06/29/16 17:56 Completed EKG [ECG 12 lead ECG] [ECG] Stat Y 06/30/16 02:12 Completed EKG [ECG 12 lead ECG] [ECG] Stat Y 06/30/16 06:53 Completed EV echocardiogram Routine Y 06/30/16 07:00 Completed Date of admission: 06/29/16 17:44 [facility] care physician: [facility] Consults: 06/29/16 17:50 Consult to Cardiology [CONS] Routine Comment: Consulting Provider: Cardiology Caroline Reason for Consult: nstemi called by ER Time Notified: 17:51 Call Completed: No 06/29/16 17:51 Consult to Nephrology [CONS] Routine Consulting Provider: Kidney Caroline/FAB/EDMUNDO/KIMBER Reason for Consult: history of renal transplant with renal failure Time Notified: 17:52 Call Completed: No 06/29/16 18:40 Consult to Nutrition [CONS] Routine Comment: Consulting Provider: NUTRITION Reason for Dietary Consult: MST Score Consult to Loss Prevention Representative [CONS] Routine Reason for SW Consult: patient [place] patient with home health and home o2, may need rehab Discharging clinician: Phu Draper - Patient Status Disposition: Transfer Other Condition: Fair Functional capacity at discharge: uses cane/walker Overall status at discharge: patient is not back to baseline - Discharge Instructions Follow Up With: [facility] [Outside] - Diet and Activity Activity: increase activity as tolerated Diet: low fat, low cholesterol, low salt diet Interval History: Patient transfer from [place] due to chest pain and abnormal EKG. 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 This morning patient developed severe chest pain described as tightness and pressure he said he doubled over with the chest pain al EKG was abnormal troponin was 0.o8 and then transferred to here for further evaluation. He Is now completely chest pain-free EKG showed improvement showed diffuse nonspecific ST-T wave changes with inferolateral ischemia of ST depression which is improved troponin here 0.1. His creatinine from [place] is 1.83 chest x- ray are suggestive of left lower lobe atelectasis versus infiltrate.. denies fever or chills hgb 8.5 Hospital course: Patient was hospitalized. His troponin was elevated at 0.06. Serial troponins were ordered. Troponin max to 3.2. Cardiology was consulted. Cardiology did have a long chat with the patient and his family. Family preferred to be getting into the conservative management rather than cardiac catheterization/ PCI. Echocardiogram was done. Echocardiogram showed aortic wall area 0.7 cm. This is a critical aortic stenosis. Cardiology discussed with the family regarding options. Family decided to go to the tertiary [facility] for further evaluation. I have spoken to [facility]. Registered nurse Tabitha was given a details of the patient. patient is accepted to coronary unit for further evaluation. Accepting physician is Dr Mario. All questions answered. - Time Spent with Patient Total time spent providing and/or coordinating discharge services: - Constitutional Vitals: Temp Pulse Resp BP Pulse Ox 97.6 F 109 15 130/66 94 07/01/16 11:35 07/01/16 11:35 07/01/16 11:35 07/01/16 11:35 07/01/16 11:35 General appearance: Present: A&O X 3, pleasant, no acute distress, answers questions appropriately - Head Head exam: Present: atraumatic, normocephalic - Eye Eye exam: Present: PERRL, conjuntiva pink, sclera anicteric Pupils: Present: PERRL - Neck Neck exam general surgery: Present: supple, trachea midline. Absent: lymphadenopathy - Respiratory Respiratory exam: Present: CTAB. Absent: accessory muscle use, rales, rhonchi, wheezes - Cardiovascular Cardiovascular exam: Present: RRR, +S1, +S2. Absent: diastolic murmur, gallop, rubs, systolic murmur - GI/Abdominal GI/Abdominal exam: Present: normal bowel sounds, soft, no peritoneal signs. Absent: distended, tenderness - Extremities Exam Extremities exam: Present: warm, radial pulses palpable and symetrical. Absent : calf tenderness, cyanotic, pedal edema - Neurological Exam Neurological exam: Present: CN II-XII intact, oriented X3, no focal deficits. Absent: pronater drift, facial droop, speech deficit - Skin Skin exam: Present: dry, intact
== END 2016-07-01 14:42 | disposition other institution (70) | DRG 280 ==
LOC: 2ANU 14:34 → EMEROO 14:34 → 2ANU 17:31 → 2NENU 22:51
PROVIDERS: ADMIT Internal Medicine; ATTEND Internal Medicine